=== PATIENT | female | born 1975 | race Caucasian/White ===

== ENCOUNTER → 2016-12-07 | Outpatient (CLI) | payer BC ==
--- NOTE | 2016-12-07 16:03 | DI ---
Indication: ITS.REASON: R10.9 R/O INCISIONAL HERNIA, ABDOMINAL PAIN Procedure: US SOFT TISSUE PELVIC WALL: Encounter: Initial Comparison: None Technique: Grayscale and color Doppler sonographic imaging of the area of pain superior to the umbilicus was performed. Findings: No abdominal herniation identified within the area of discomfort. No solid or cystic mass seen. No abnormal lymph nodes identified. Impression: No abnormality seen sonographically within the area of pain superior to the umbilicus. .
== END ==
LOC: IMA 15:18
PROVIDERS: ATTEND Nurse Practitioner Family
DX: R10.13 Epigastric pain (principal)